=== PATIENT | male | born 1960 | race Caucasian/White ===

== ENCOUNTER 2021-02-28 07:35 | Observation (INO) | payer OTHER ==
[~2021-02-28] VITALS: Ht 190.5 cm; Wt 109.3 kg
[~2021-02-28 07:35] MED LIST: AMOX500 PO; ASPI325; ASPI81EC PO; ATOR20 PO; ATOR40TA PO; DILT240 PO; DUTA.5 PO; HYDACE5 PO; MULVITMINF PO; OMEP20ER PO; PENVK500 PO; ROSU10TA; RXNEOPOLHC AS; TAMS.4ER PO
[2021-02-28 08:17] LABS: BASOPHILS ABSOLUTE AUTO 0.02 K/mm3 (0.00-0.23); BASOPHILS PERCENT AUTO 1 % (0-2); EOSINOPHILS ABSOLUTE AUTO 0.11 K/mm3 (0.00-0.68); EOSINOPHILS PERCENT AUTO 4 % (0-6); Hematocrit 43.8 % (37.0-53.0); Hemoglobin 14.2 g/dL (13.5-17.5); IMMATURE GRAN ABSOLUTE AUTO 0.01 K/mm3 (0.00-0.10); IMMATURE GRAN PERCENT AUTO 0 % (0-1); LYMPHOCYTES ABSOLUTE AUTO 1.04 K/mm3 (0.84-5.20); LYMPHOCYTES PERCENT AUTO 33 % (21-46); MONOCYTES ABSOLUTE AUTO 0.42 K/mm3 (0.16-1.47); MONOCYTES PERCENT AUTO 13 % (4-13); Mean Corpuscular HGB 29.3 pg (26.0-34.0); Mean Corpuscular HGB Conc 32.4 g/dL (31.5-36.5); Mean Corpuscular Volume 91 fL (80-100); Mean Platelet Volume 10.9 fL (9.1-12.4); NEUTROPHILS ABSOLUTE AUTO 1.57 K/mm3 (1.96-9.15); NEUTROPHILS PERCENT AUTO 50 % (41-73); Platelet Count 168 K/mm3 (150-400); RDW Coefficient Variation 13.3 % (11.7-14.2); RDW Standard Deviation 44.4 fL (35.1-46.3); Red Blood Cell Count 4.84 M/mm3 (4.30-5.90); White Blood Cell Count 3.17 K/mm3 (4.00-11.30)
[2021-02-28 08:44] LABS: Alanine Aminotransfer (ALT/SGP 40 U/L (12-78); Albumin, Blood 3.5 g/dL (3.4-5.0); Albumin/Globulin Ratio 0.9 (0.8-1.8); Alk Phos 58 U/L (50-136); Anion Gap 4 mmol/L (6-16); Aspartate Aminotrans (AST/SGOT 30 U/L (12-37); Bilirubin, Total 0.3 mg/dL (0.1-1.0); Blood Urea Nitrogen 12 mg/dL (8-24); Bun/Creatinine Ratio 11.1 (12.0-20.0); CO2, Blood 26 mmol/L (21-32); Calcium, Blood 8.6 mg/dL (8.5-10.1); Chloride, Blood 108 mmol/L (98-108); Creatinine, Blood 1.08 mg/dL (0.60-1.20); Globulin, Blood 3.9 g/dL (2.2-4.0); Glomerular Filtration Rate >60 (60-); Glucose, Blood 97 mg/dL (70-99); Potassium, Blood 4.3 mmol/L (3.5-5.5); Sodium, Blood 138 mmol/L (136-145); Total Protein, Blood 7.4 g/dL (6.4-8.2); Troponin I <0.015 ng/mL (0.000-0.040)
[2021-02-28] MEDS ORDERED: MULTI-VITAMIN1 EAC2 PO (10:45)
[2021-02-28 15:44] LABS: CHOL/HDL RATIO 4.6; Cholesterol 214 mg/dL (50-200); HDL Cholesterol 47 mg/dL (>39); LDL/HDL RATIO 2.9; Low Density Lipoprotein Chol 138 mg/dL (0-110); Triglycerides 147 mg/dL (30-160); Very Low Density Lipoprot Chol 29 mg/dL (6-32)
--- NOTE | 2021-02-28 18:51 | NUR ---
PT ADMITTED TOFLOOR 1620. ALERT ORIENTED, C/P CONTINUES AT ABOUT 7/10 PRESSURE/PAIN. ORDERS FROM DR ARCHER FOR TYLENOL AND TELE. DONE. H/R REG, NO MURMER NOTED. NO TELE YET. LUNGS CLEAR, RESP EASY, UNLABORED. PT SETTLED TO BED. AT BEDSIDE. BED IN LOW POSITION,C ALL LITE IN REACH, CALLS APPROP
--- NOTE | 2021-02-28 19:30 | NUR ---
ASSUMED CARE RECEIVED REPORT FROM HECTOR CONNER. PT RESTING, IN NAD. AT THE BEDSIDE. NO ACUTE NEEDS ASSESSED AT THIS TIME.
[2021-03-01 05:07] LABS: BASOPHILS ABSOLUTE AUTO 0.02 K/mm3 (0.00-0.23); BASOPHILS PERCENT AUTO 1 % (0-2); EOSINOPHILS ABSOLUTE AUTO 0.14 K/mm3 (0.00-0.68); EOSINOPHILS PERCENT AUTO 5 % (0-6); Hematocrit 44.2 % (37.0-53.0); Hemoglobin 14.3 g/dL (13.5-17.5); IMMATURE GRAN ABSOLUTE AUTO 0.01 K/mm3 (0.00-0.10); IMMATURE GRAN PERCENT AUTO 0 % (0-1); LYMPHOCYTES ABSOLUTE AUTO 1.31 K/mm3 (0.84-5.20); LYMPHOCYTES PERCENT AUTO 45 % (21-46); MONOCYTES ABSOLUTE AUTO 0.43 K/mm3 (0.16-1.47); MONOCYTES PERCENT AUTO 15 % (4-13); Mean Corpuscular HGB 29.9 pg (26.0-34.0); Mean Corpuscular HGB Conc 32.4 g/dL (31.5-36.5); Mean Corpuscular Volume 92 fL (80-100); Mean Platelet Volume 11.3 fL (9.1-12.4); NEUTROPHILS ABSOLUTE AUTO 1.01 K/mm3 (1.96-9.15); NEUTROPHILS PERCENT AUTO 35 % (41-73); Platelet Count 179 K/mm3 (150-400); RDW Coefficient Variation 13.5 % (11.7-14.2); Red Blood Cell Count 4.79 M/mm3 (4.30-5.90); White Blood Cell Count 2.92 K/mm3 (4.00-11.30)
[2021-03-01 05:29] LABS: Anion Gap 2 mmol/L (6-16); Blood Urea Nitrogen 13 mg/dL (8-24); Bun/Creatinine Ratio 10.8 (12.0-20.0); CO2, Blood 30 mmol/L (21-32); Calcium, Blood 8.5 mg/dL (8.5-10.1); Chloride, Blood 108 mmol/L (98-108); Glomerular Filtration Rate >60 (60-); Glucose, Blood 90 mg/dL (70-99); Potassium, Blood 4.5 mmol/L (3.5-5.5); Sodium, Blood 140 mmol/L (136-145)
--- NOTE | 2021-03-01 07:33 | NUR ---
[facility] SUMMARY PT RESTING, IN NAD. PT REPORTS INTERMITTENT EPISODES OF CP, THAT QUICKLY SUBSIDES. NO OTHER ACUTE CHANGES TO REPORT OVERNIGHT. VS REVIEWED,WNL. NO ACUTE NEEDS ASSESSED AT THIS TIME. CALL LIGHT, POSSESSIONS IN REACH, BED IN LOW AND LOCKED POSITION. NPO SINCE MIDNIGHT FOR STRESS TEST THIS AM. REPORT GIVEN TO HECTOR CONNER.
--- NOTE | 2021-03-01 07:40 | NUR ---
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 STATES PAIN PRESSURE MIDSTERNAL, MODERATE CONSTANT, OCC SHARP PAINS. H/R REG, NO MURMER NOTED. PER TELE NSR AT 69 AVG IS 58. LUNGS CLEAR, RESP EASY, UNLABORED. ON R.A. BT X4, LAST BM YEST. VOIDS INDEPENDANT TO BATHROOM. BED IN LOW POSITION, CALL LITE IN REACH, CALLS APPROP. PFENDING STRESS TEST THIS AM.
[2021-03-01] MEDS ORDERED: ATOR40TA PO (16:43)
[2021-03-01] MEDS ORDERED: IBUP800 PO (16:44)
[2021-03-01] MEDS ORDERED: PANT40 PO (16:44)
--- NOTE | 2021-03-01 18:33 | NUR ---
IV PULLED INTACT. TELE REMOVED. PT DISCHARGE REVIEWED WITH PT AND SPOUSE. PT VERBALIZED UNDERSTANDING. DR ADVISED HEART TESTS NEGATIVE. PT UNDERSTANDING [facility] WILL CONTACT HIM TO MAKE FOLLOWUP APPOINTMENT. I WALKED PT TO DOOR AT 1730
== END 2021-03-01 18:39 | disposition home or self-care (01) ==
LOC: ER 07:35 → ERHOLD 07:36 → MEDS 14:33 → ER 14:33 → ERHOLD 14:33 → MEDS 18:27 → ERHOLD 18:27 → MEDS 03-01 07:38 → ERHOLD 03-01 07:38 → ER 03-01 07:38 → MEDS 03-01 10:36
PROVIDERS: Emergency Medicine; ADMIT Internal Medicine
DX: R07.89 Other chest pain (principal); I25.10 Atherosclerotic heart disease of native coronary artery without angina pectoris; I10 Essential (primary) hypertension; G47.33 Obstructive sleep apnea (adult) (pediatric); E78.5 Hyperlipidemia, unspecified; K21.9 Gastro-esophageal reflux disease without esophagitis; E66.9 Obesity, unspecified; Z68.30 Body mass index [BMI] 30.0-30.9, adult; Z79.82 Long term (current) use of aspirin
CPT/HCPCS: 36415; 71045; 78452; 80048; 80053; 80061; 83036; 84484; 85025; 93005; 93010; 93017; 96374; 96375; 99285-25; A9270; A9500; G0378; J2405; J2785; J3010

== ENCOUNTER 2024-06-05 08:29 | Day surgery (SDC) | payer BC ==
[~2024-06-05] VITALS: Ht 190.5 cm; Wt 111.1 kg
[2024-06-05] VITALS (12 sets, daily range): BP systolic 109–155; BP diastolic 73–96
[~2024-06-05 08:29] MED LIST changes: +ASPI81CH PO; +IBUP800 PO; +MULTI-VITAMIN1 EAC2 PO; +Omeprazole20 M1 PO; +PANT40 PO
[2024-06-05] MEDS ORDERED: Ropivacaine 0.5% HCl/Pf 123.125 MG,EPINEPHrine HCL 0.25 MG,Ketorolac Tromethamine 15 MG... INFIL SCH (08:50)
[2024-06-05] MEDS ORDERED: Chlorhexidine Mouth Care 15 ML UDC MT SCH (08:50)
[2024-06-05] MEDS ORDERED: Acetaminophen 500 MG Tab PO SCH ×2 (08:50→16:00)
[2024-06-05] MEDS ORDERED: CeFAZolin Sodium 2,000 MG in NS 100 ML IV SCH ×2 (08:50→19:30)
[2024-06-05] MEDS ORDERED: Lactated Ringer's 1,000 ML IV SCH ×2 (08:50→10:40)
[2024-06-05] MEDS ORDERED: Tranexamic Acid 100 ML IV SCH (08:57)
[2024-06-05] MEDS ORDERED: OxyCODONE HCL 10 MG TABCR PO SCH (09:40)
[2024-06-05] MEDS ORDERED: DiphenhydrAMINE HCL 25 MG Cap PO PRN (10:35)
[2024-06-05] MEDS ORDERED: Bisacodyl 10 MG Supp PR PRN (10:40)
[2024-06-05] MEDS ORDERED: HYDROmorphone HCl/Pf 1MG SYR IV PRN (10:40)
[2024-06-05] MEDS ORDERED: Metoclopramide HCl 5MG / ML 2ML Vial IV PRN (10:40)
[2024-06-05] MEDS ORDERED: Magnesium Hydroxide Conc 10 ML UDC PO PRN (10:40)
[2024-06-05] MEDS ORDERED: OxyCODONE HCL 5 MG TAB PO PRN ×2 (10:45)
[2024-06-05] MEDS ORDERED: FLU VACC TS2024-25(6MOS UP)/PF 45 MCG/0.5 ML SYRINGE IM SCH (10:45)
[2024-06-05] MEDS ORDERED: Promethazine HCl 25 MG Tab PO PRN (10:45)
[2024-06-05] MEDS ORDERED: Ondansetron HCl 2 MG / ML 2ML Vial IV PRN (10:45)
[2024-06-05] MEDS ORDERED: Midazolam HCl 1MG / ML 2ML Vial ONE (11:22)
[2024-06-05] MEDS ORDERED: propofoL 50 ML IV ONE (11:32)
[2024-06-05] MEDS ORDERED: propofoL 40 ML IV ONE (11:33)
[2024-06-05] MEDS ORDERED: Dexamethasone Sod Phos 10 MG/ML 1ML VIAL ONE (11:35)
[2024-06-05] MEDS ORDERED: Ondansetron HCl 2 MG / ML 2ML Vial ONE (11:35)
[2024-06-05] MEDS ORDERED: Ketorolac Tromethamine 15mg Vial IV SCH (12:00)
[2024-06-05] MEDS ORDERED: Ketorolac Tromethamine 30mg Vial ONE (12:51)
--- NOTE | 2024-06-05 13:38 | NUR ---
ARRIVAL NOTE PT ARRIVES TO RM 219 ON GURNEY. ALERT, TALKING APPROPRIATELY. NO COMPLAINTS OF PAIN OR NAUSEA. PT HAS MINIMAL SENSATION AND MOVEMENT IN BOTH LOWER EXTREMITIES. PT HAS AQUACEL AND GUILLERMINA WRAP TO L KNEE - C/D/I. PT HAS POLAR PACK OVER L KNEE ALSO. VITALS STABLE UPON ARRIVAL. PT GIVEN ICE WATER, JELLO, AND CRACKERS. FAMILY AND PT ORIENTED TO ROOM. SIDE RAILS UP AND CALL LIGHT IN REACH.
--- NOTE | 2024-06-05 16:26 | NUR ---
Pty. is awake in bed when he welcomes my visit. Pt. is pleasant. Facilitated a life review and considered matters of elias and belief. Pt. displays a confidant trust in his elias. A merasure of rapport is established. Pt. displayed evidence of being motivated to do his physical therapy. Normalized the Pt. experience. Pryaed with the Pt. Pt. verbalized gratitude fo rthe spiritual care visit.
--- NOTE | 2024-06-05 18:00 | NUR ---
UPDATE PT CLEARED BY PHYSICAL THERAPY. HAVING ONGOING PAIN EVEN WITH ORAL PAIN MEDICATION. DISCUSSED OPTION TO GIVE IV PAIN MEDICATION AND PT AGREES. PT HAS NOT VOIDED YET. PT'S AT BEDSIDE. QUESTIONS ANSWERED. POLAR PACK IN PLAC. L LEG ELEVATE.
--- NOTE | 2024-06-05 18:30 | NUR ---
PT AMBULATED WITH WALKER TO RR WITH . PT WAS ABLE TO VOID FREELY. UNMEASURED BUT PT STS IT WAS A LARGE AMOUNT. PT STS HE WANTS TO D/C HOME AT THIS POINT.
--- NOTE | 2024-06-05 19:39 | NUR ---
DISCHARGE SUMMARY PT A/OX4. ALIRIO PO INTAKE WELL. ADEQUATE PAIN CONTROL WITH ORAL MEDS. PT VOIDED. CLEARED BY PHYSICAL THERAPY. PT GIVEN EXTRA AQUACEL DRSG. F/U WITH ORTHO. PT AND FAMILY VERBALIZE UNDERSTANING OF D/C INSTRUCTIONS. ESCORTED TO LOBBY VIA WC.
[2024-06-05] MEDS ORDERED: Docusate Sodium 100 MG Cap PO SCH (21:00)
[2024-06-06] MEDS ORDERED: Omeprazole 20 MG CapCR PO SCH (06:00)
[2024-06-06] MEDS ORDERED: Multivitamins 1 Tab PO SCH (09:00)
[2024-06-06] MEDS ORDERED: Atorvastatin 40 MG Tab PO SCH (09:00)
[2024-06-06] MEDS ORDERED: Aspirin 81 MG Chew PO SCH (09:00)
== END 2024-06-05 19:30 | disposition home or self-care (01) ==
LOC: ORSCMMR 08:29 → ORD 10:00 → SURS 13:40 → ORSCMMR 19:30
PROVIDERS: Orthopaedic Surgery
PROC: 0SRD0JA Replacement of Left Knee Joint with Synthetic Substitute, Uncemented, Open Approach (ICD-10-PCS; principal; 2024-06-05 10:00)
DX: M17.12 Unilateral primary osteoarthritis, left knee (principal); Z79.82 Long term (current) use of aspirin; Z79.899 Other long term (current) drug therapy
CPT/HCPCS: 73560-LT; 97110; 97116; 97161; 97530; A9270; C1776; J0171; J0690; J0735; J1100; J1171; J1885; J2250; J2405; J2704; J2795; J7120